=== PATIENT | female | born 1995 | race Caucasian/White ===

== ENCOUNTER 2016-09-09 11:25 | Emergency (ER) | payer SELFPAY ==
[~2016-09-09] VITALS: Wt 73.0 kg
[2016-09-09 11:31] VITALS: BP 131/90; PULSE 92; TEMP 98.6
[2016-09-09] MEDS ORDERED: BIRTH CONTROL (11:35)
[2016-09-09 12:29] LABS: BASO % 0.4 % (0.0-2.0); EOS # 0.1 (0.0-0.7); EOS % 1.7 % (0-4.0); GRAN % 57.2 % (42.2-75.2); HEMATOCRIT 42.9 % (35.0-45.0); HEMOGLOBIN 14.6 g/dl (12.0-15.0); LYMPH # 2.3 (1.2-3.4); LYMPH % 33.4 % (20.0-51.0); MEAN CELL VOLUME 88 fl (80.0-95.0); MEAN CORPUSCULAR HEMOGLOBIN 30 pg (26.0-32.0); MEAN CORPUSCULAR HGB CONC 34 g/dl (33.0-37.0); MEAN PLATELET VOLUME 9.2 fl (7.4-10.4); MONO # 0.5 (0.1-0.6); MONO % 7.2 % (1.7-9.3); PLATELET COUNT 268 K/mm3 (130-400); RED BLOOD COUNT 4.88 M/mm3 (4.10-5.30); REDCELL DISTRIBUTION WIDTH-CV 11.7 % (11.5-14.5)
[2016-09-09 12:45] LABS: ADJUSTED CALCIUM 9.2 mg/dL (8.4-10.2); ALBUMIN 4.2 gm/dL (3.5-5.0); BILIRUBIN,TOTAL 0.8 mg/dL (0.0-1.0); CALCIUM 9.4 mg/dL (8.4-10.2); CREATININE, serum 0.66 mg/dL (0.52-1.25); POTASSIUM 4.2 mmol/L (3.4-5.0); TOTAL PROTEIN 7.9 gm/dL (6.4-8.2)
[2016-09-09 12:46] LABS: C-REACTIVE PROTEIN 0.5 mg/dL (0.0-0.9)
== END 2016-09-09 13:04 | disposition home or self-care (01) ==
LOC: COL.ER 11:25
PROVIDERS: Physician Assistant
DX: R10.13 Epigastric pain (principal)

== ENCOUNTER 2016-09-15 21:10 | Emergency (ER) | payer OTHER ==
[~2016-09-15] VITALS: Ht 161 cm; Wt 73.0 kg
[~2016-09-15 21:10] MED LIST: BIRTH CONTROL
[2016-09-15] MEDS ORDERED: PRILOSEC10 MG PO (21:16)
[2016-09-15 22:15] LABS: INFLUENZA B NEGATIVE
[2016-09-15 23:07] LABS: BASO % 0.2 % (0.0-2.0); EOS % 0.4 % (0-4.0); GRAN # 8.3 (1.4-6.5); GRAN % 86.6 % (42.2-75.2); HEMATOCRIT 42.2 % (35.0-45.0); HEMOGLOBIN 14.4 g/dl (12.0-15.0); LYMPH # 0.6 (1.2-3.4); LYMPH % 6.5 % (20.0-51.0); MEAN CELL VOLUME 87 fl (80.0-95.0); MEAN CORPUSCULAR HEMOGLOBIN 30 pg (26.0-32.0); MEAN CORPUSCULAR HGB CONC 34 g/dl (33.0-37.0); MONO # 0.6 (0.1-0.6); PLATELET COUNT 260 K/mm3 (130-400); RED BLOOD COUNT 4.88 M/mm3 (4.10-5.30); REDCELL DISTRIBUTION WIDTH-CV 11.6 % (11.5-14.5); WHITE BLOOD COUNT 9.5 K/mm3 (4.8-10.8)
[2016-09-15 23:45] LABS: ADJUSTED CALCIUM 8.7 mg/dL (8.4-10.2); ALBUMIN 4.1 gm/dL (3.5-5.0); C-REACTIVE PROTEIN 1.8 mg/dL (0.0-0.9); CALCIUM 8.8 mg/dL (8.4-10.2); CREATININE, serum 0.65 mg/dL (0.52-1.25); POTASSIUM 3.8 mmol/L (3.4-5.0); TOTAL PROTEIN 7.6 gm/dL (6.4-8.2)
[2016-09-16 00:17] VITALS: BP 124/70; PULSE 101; TEMP 98.8
== END 2016-09-16 00:18 | disposition home or self-care (01) ==
LOC: COL.ER 21:10
PROVIDERS: Physician Assistant
DX: B34.9 Viral infection, unspecified (principal); F12.10 Cannabis abuse, uncomplicated; R00.0 Tachycardia, unspecified
CPT/HCPCS: J2550; J7030

== ENCOUNTER 2017-11-20 17:55 | Emergency (ER) | payer OTHER ==
[~2017-11-20] VITALS: Ht 161 cm; Wt 80.4 kg
[~2017-11-20 17:55] MED LIST changes: +PRILOSEC10 MG PO
[2017-11-20 17:58] VITALS: BP 123/75
[2017-11-20 19:03] LABS: BASO % 0.6 % (0.0-2.0); EOS % 0.3 % (0-4.0); GRAN # 4.1 (1.4-6.5); GRAN % 63.7 % (42.2-75.2); HEMATOCRIT 49.4 % (37.0-47.0); LYMPH # 1.6 (1.2-3.4); MEAN CELL VOLUME 87 fl (80.0-100.0); MEAN CORPUSCULAR HEMOGLOBIN 30 pg (27.0-31.0); MEAN CORPUSCULAR HGB CONC 34 g/dl (33.0-37.0); MEAN PLATELET VOLUME 8.9 fl (7.4-10.4); MONO # 0.7 (0.1-0.6); MONO % 11.2 % (1.7-9.3); PLATELET COUNT 198 K/mm3 (130-400); RED BLOOD COUNT 5.68 M/mm3 (4.10-5.30); REDCELL DISTRIBUTION WIDTH-CV 11.1 % (11.5-14.5)
[2017-11-20 19:09] LABS: COLLECTION METHOD CLEAN CATCH
[2017-11-20 19:12] LABS: ALBUMIN 4.5 gm/dL (3.5-5.0); BILIRUBIN,TOTAL 0.7 mg/dL (0.0-1.0); CALCIUM 9.4 mg/dL (8.4-10.2); CREATININE, serum 0.68 mg/dL (0.52-1.25); TOTAL PROTEIN 9.1 gm/dL (6.4-8.2)
[2017-11-20 19:15] LABS: MUCOUS Present /lpf; PH 6 (5-8); URINE APPEARANCE Hazy; URINE BACTERIA None Seen /hpf; URINE BILIRUBIN Negative (NEGATIVE); URINE BLOOD 1+ (NEGATIVE); URINE COLOR Amber; URINE GLUCOSE Negative (NEGATIVE); URINE KETONE 2+ (NEGATIVE); URINE LEUKOCYTE ESTERASE Trace (NEGATIVE); URINE NITRATE Negative (NEGATIVE); URINE PROTEIN(semi-quant) 1+ (NEGATIVE)
[2017-11-20 19:42] LABS: C-REACTIVE PROTEIN 2.3 mg/dL (0.0-0.9)
[2017-11-20 20:18] VITALS: TEMP 98.9
[2017-11-20 20:45] VITALS: PULSE 99
== END 2017-11-20 20:48 | disposition home or self-care (01) ==
LOC: COL.ER 17:55
PROVIDERS: Physician Assistant
DX: R51 Headache (principal)